=== PATIENT | female | born 1960 | race Caucasian/White ===

== ENCOUNTER 2016-07-23 09:25 | Emergency (ER) | payer BC ==
[~2016-07-23] VITALS: Ht 154.9 cm; Wt 91.0 kg
[~2016-07-23 09:25] MED LIST: TRAM-10 PO
[2016-07-23 09:29] VITALS: TEMP 36.5; Ht 154.9 cm; Wt 91.0 kg
[2016-07-23] MEDS ORDERED: MoRPHine SULFATE 4 MG/ML 1 ML CARP\\VIAL IV STA (10:01)
[2016-07-23] MEDS ORDERED: PRLSR20 PO (10:10)
[2016-07-23] MEDS ORDERED: DOXY100C76 PO (10:10)
[2016-07-23] MEDS ORDERED: OXYCODONE PO (10:10)
[2016-07-23 10:51] VITALS: BP 124/61; PULSE 53; O2SAT 97
[2016-07-23] MEDS ORDERED: CYCL10TA6 PO (10:58)
[2016-07-23] MEDS ORDERED: OXYC1TAB3 PO (10:58)
--- NOTE | 2016-07-23 16:06 | EMERGENCY ROOM VISIT NOTE ---
History First contact with patient: 09:29 Chief Complaint: BACK PAIN Stated Complaint: BACK PAIN History of Present Illness The patient is a 56 year old female who presents to the Emergency Room with complaints of persistent lower back pain after injuring her back at [employer] 2 days ago. The patient reports that she noticed back discomfort after lifting a case of water into her shopping cart. The patient also reports that she worsen her pain yesterday while trying to get out of her bed. She now reports significant pain and tightness in her lower back. She denies any pain extending into the buttocks or down the legs. She denies bladder/bowel difficulties, saddle anesthesia or lower extremity weakness. The patient does have a prior history of herniated disks in her back. She had an MRI performed in our emergency department in February 2014. She did follow up with Dr. Henao , spine surgeon, who ordered physical therapy. The patient also occasionally will see a chiropractor, otherwise denies any significant chronic back pain. The patient was transported here via ambulance, and received morphine 6 mg IVP 2. She currently denies any pain. Review of Systems 10 system review was performed and was negative except for pertinent positives and negatives as indicated in history of present illness Past Medical/Surgical History Medical Problems: (1) Rosacea Surgical Problems: (1) H/O breast surgery (2) S/P cholecystectomy Family History Gallbladder disease Social History Smoking Status: Never Smoker Alcohol Use: occasionally Marital Status: Housing Status: lives with family Occupation Status: retired Current/Historical Medications Scheduled Cyclobenzaprine Hcl (Flexeril), 10 MG PO TID Doxycycline Monohydrate (Monodox), 100 MG PO QAM Omeprazole (Prilosec), 20 MG PO DAILY [Oxycodone], 1 TAB PO UD Scheduled PRN Oxycodone Ir (Roxicodone Ir), 1-2 TAB PO Q4H PRN for Pain Allergies Coded Allergies: Ampicillin (Verified Allergy, Unknown, RASH, 07/23/16) Physical Exam Vital Signs Date Time Temp Pulse Resp B/P Pulse Ox O2 Delivery O2 Flow Rate FiO2 07/23/16 10:51 53 20 124/61 97 Room Air 07/23/16 09:29 36.5 55 18 157/85 99 Room Air Physical Exam CONSTITUTIONAL: Healthy and well nourished. Alert and oriented X 3 with positive affect. She is crying laying in a supine position in no acute distress. HEENT: Normocephalic, atraumatic. Pupils equal, round and reactive. NECK: Full active range of motion without discomfort. RESPIRATORY: Clear to auscultation bilaterally with no wheezing, crackles, rhonchi or stridor. CARDIOVASCULAR: Regular rate and rhythm with no murmurs, rubs or gallops. GASTROINTESTINAL: Bowel sounds present in all quadrants. Abdomen is soft and nontender to palpation. MUSCULOSKELETAL: Examination shows generalized tenderness to palpation and mild rigidity of the lumbar paraspinous muscles. She has no focal tenderness to the central lumbar spine or SI joints. Negative logroll. Negative straight leg raise. Pedal pulses are intact. Ankle plantar/dorsiflexion strength is 5 out of 5 and symmetric bilaterally. INTEGUMENTARY: No rash or other significant dermatologic conditions noted. NEUROLOGIC: Bilateral feet are sensory intact. Lower extremity deep tendon reflexes are 2+ and symmetric. Medical Decision & Procedures Medications Administered Medications (Trade) Dose Ordered Sig/Elvin Route Start Time Stop Time Status Last Admin Dose Admin Morphine Sulfate (MoRPHine SULFATE INJ) 4 mg NOW STAT IV 07/23/16 10:01 07/23/16 10:02 DC 07/23/16 10:06 4 MG ED Course Patient history and physical exam were performed. Nurse's notes were reviewed. Vital signs were reviewed and were normal. I also reviewed the patient's ED documentation from February 2016. An MRI of the lumbar spine at that time did show an L3-4 and L4-L5 central disc protrusion with no significant stenosis or neural foraminal compromise. At the time my evaluation, the patient denies any significant pain, stating that the morphine really helped with her pain. After pushing on the muscles in her back, she rated her discomfort a 3 out of 10. After a short period of observation, the patient attempted to ambulate. She was able to get up, but still had notable discomfort. She was administered an additional morphine 4 mg IVP with decent relief of her pain. The patient will be provided prescriptions for OxyIR 5 mg and Flexeril. She was given instructions on how to take these medications. She was also warned about sedating side effects and constipation with prolonged use. The patient was encouraged to intermittently apply heat to her back. She may also alternate ibuprofen and Tylenol for baseline pain relief. I did encourage her to follow-up with her PCP in the next 2-3 days for reevaluation if her pain persists. Return to the emergency Department for uncontrollable pain. The patient was happy with plan of care, voiced understanding of all discharge instructions, and rated her pain a 4 out of 10 at the conclusion of my exam. Medical Decision Patient does not present with history or physical exam findings consistent with spinal abscess, hematoma, discitis or lumbar radiculitis. I also do not suspect an emergent compressive neuropathy such as conus medullaris or cauda equina syndrome. At this point, I do not feel that further imaging studies are warranted because the patient denies any recent illness or traumatic injury to the back. Impression Primary Impression: Strain of lumbar region Additional Impression: Lumbar disc herniation Departure Information Prescriptions Cyclobenzaprine Hcl (FLEXERIL) 10 Mg Tab 10 MG PO TID for spasm, #15 TAB Prov: Juan Francisco Stephenson PA 07/23/16 Oxycodone Ir (Roxicodone Ir) 5 Mg Tab 1-2 TAB PO Q4H Y for Pain, #15 TAB For Initial Treatment Prov: Juan Francisco Stephenson PA 07/23/16 Referrals Mag Ash (PCP) Patient Instructions My [facility] Problem Qualifiers Primary Impression: Strain of lumbar region Encounter type: initial encounter Qualified Codes: S39.012A - Strain of muscle, fascia and tendon of lower back, initial encounter
== END 2016-07-23 11:09 | disposition home or self-care (01) ==
LOC: EDBD 09:25 → C.EDB 09:27
DX: S39.012A Strain of muscle, fascia and tendon of lower back, initial encounter (principal); X50.1XXA Overexertion from prolonged static or awkward postures, initial encounter; Y92.512 Supermarket, store or market as the place of occurrence of the external cause; M51.26 Other intervertebral disc displacement, lumbar region; Z83.79 Family history of other diseases of the digestive system; Z79.899 Other long term (current) drug therapy